=== PATIENT | male | born 1940 | race Caucasian/White ===

== ENCOUNTER 2016-12-03 16:31 | Emergency (ER) | payer OTHER ==
[2016-12-03 16:46] VITALS: RESP 16; TEMP 97.5; O2SAT 95
--- NOTE | 2016-12-03 17:09 | EDPHY ---
H & P Stated Complaint: hx BPH/having issues with urinary retention Time Seen by Provider: 12/03/16 16:55 HPI/ROS: Chief complaint: Urinary retention History of present illness: This is a 76-year-old male who presents to the emergency department evaluation he of urinary retention areas patient reports the onset of symptoms over the last day. He states he has been on blood be able to urinate for the last few hours. He did just started azithromycin for an upper respiratory tract infection and he states he has a history of problems with his prostate, however she only takes supplements. States he has had problems urinating before but never had a complete inability urinate. He denies other associated signs or symptoms: No fevers, no abdominal pain, no nausea, vomiting or diarrhea. Review of systems: A 10 point review of systems was obtained and other than described above was negative - Personal History Current Tetanus/Diphtheria Vaccine: No - Medical/Surgical History Hx Asthma: No Hx Chronic Respiratory Disease: No Hx Diabetes: No Hx Cardiac Disease: No Hx Renal Disease: No Hx Cirrhosis: No Hx Alcoholism: No Hx HIV/AIDS: No Hx Splenectomy or Spleen Trauma: No Other PMH: cardiac bypass surgery - Social History Smoking Status: Never smoked - Physical Exam Exam: General Appearance: Alert, nontoxic. Eyes: Pupils equal and round no injection. Respiratory: Chest is non tender, lungs are clear to auscultation. Cardiac: regular rate and rhythm Gastrointestinal: Bowel sounds normal. Abdomen is soft. There is distention in the suprapubic region. No tenderness to palpation. Musculoskeletal: Neck is supple and non tender. Extremities have full range of motion and are non tender. Skin: No rashes or lesions. Neurological: Alert and oriented x4. Strength and sensation intact and symmetrical. Constitutional: Initial Vital Signs Temperature (C) 36.4 C 12/03/16 16:43 Heart Rate 95 12/03/16 16:43 Respiratory Rate 16 12/03/16 16:43 Blood Pressure 144/92 H 12/03/16 16:43 O2 Sat (%) 95 12/03/16 16:43 O2 Delivery Mode Room Air Allergies/Adverse Reactions: No Known Allergies Allergy (Verified 12/03/16 16:41) Home Medications: Medication Instructions Recorded Atorvastatin Calcium [Lipitor 20 20 mg PO DAILY 07/28/11 mg] Lisinopril [Prinivil] 20 mg PO DAILY 08/21/11 AZITHROMYCIN 12/03/16 Medical Decision Making ED Course/Re-evaluation: Patient seen under the supervision of my primary supervising physician Dr. Tamiko Alva. Patient presents to the emergency department for acute urinary retention. On presentation he is nontoxic. Afebrile and vital signs are stable. Bladder scanner shows over 600 cc of urine in the bladder. Catheter is placed. Patient has good relief of discomfort. Urinalysis is obtained, blood is noted, likely secondary to catheter placement. No evidence of infection. Patient does report a history of problems urinating although he has not specifically seen a urologist before. Long catheter will be left in place with a leg bag. He is referred to Urology for further evaluation and care. Return precautions are given. Patient voiced understanding and agreement with plan. Differential Diagnosis: Included but not limited to acute urinary retention secondary to BPH, infection , medication - Data Points Laboratory Results: 12/03/16 17:25 Urine Color RED Urine Appearance HAZY Urine pH 7.0 (5.0-7.5) Ur Specific [place] 1.015 (1.002-1.030) Urine Protein 1+ H (NEGATIVE) Urine Ketones NEGATIVE (NEGATIVE) Urine Blood 3+ H (NEGATIVE) Urine Nitrate NEGATIVE (NEGATIVE) Urine Bilirubin NEGATIVE (NEGATIVE) Urine Urobilinogen NEGATIVE EU EU (0.2-1.0) Ur Leukocyte Esterase NEGATIVE (NEGATIVE) Urine RBC 50-182 /hpf H /hpf (0-3) Urine WBC NONE SEEN /hpf /hpf (0-3) Ur Epithelial Cells NONE SEEN /lpf /lpf (NONE-1+) Urine Mucus TRACE /lpf /lpf (NONE-1+) Ur Culture Indicated? NOT INDICATED (NI) Urine Glucose NEGATIVE (NEGATIVE) Departure - Departure Disposition: Home, Routine, Self-Care Clinical Impression: Urinary retention Condition: Good Instructions: Urinary Retention in Men (ED), Long Catheter Placement and Care (ED) Additional Instructions: Follow-up with Urology this week for recheck Urology can remove the catheter later this week or you can return to the emergency department for catheter removal in the next 2-3 days If symptoms worsen or new symptoms develop return to the emergency department for recheck Referrals: Shar Delgado MD [Medical Doctor] - As per Instructions
[2016-12-03 17:54] LABS: COLOR RED; LEUKOCYTE ESTERASE,URINE NEGATIVE (NEGATIVE); NITRITE,URINE NEGATIVE (NEGATIVE)
[2016-12-03 18:02] LABS: MUCUS TRACE /lpf (NONE-1+); RBC,URINE 50-182 /hpf (0-3)
[2016-12-03 18:03] LABS: WBC,URINE NONE SEEN /hpf (0-3)
[2016-12-03 18:38] VITALS: BP 138/88; PULSE 84
== END 2016-12-03 18:36 | disposition home or self-care (01) ==
PROC: 0T9B70Z Drainage of Bladder with Drainage Device, Via Natural or Artificial Opening (ICD-10-PCS; principal; 2016-12-03)
DX: R33.9 Retention of urine, unspecified (principal)

== ENCOUNTER 2017-06-23 14:00 | Inpatient (IN) | payer OTHER ==
--- NOTE | 2017-06-23 13:52 | EDPHY ---
H & P HPI/ROS: CHIEF COMPLAINT: Vomiting, fever HISTORY OF PRESENT ILLNESS: The patient is a 76 y/o male arriving via EMS for vomiting, fever, and general malaise since 1200 today, 2 hours ago. His states he had a temperature of nearly 41 C after he became ill. He has vomited three times since 1300, 1 hour ago. EMS reports a blood pressure of 104/66 and a heart rate of 130 although it dropped to 104 by the time the patient arrived in the ED. He denies dysuria. He took an Advil earlier in the day because of toothache (lower right). Toothache is resolved. He had a root canal done a few weeks ago He is currently feeling groggy and cold. Denies cough, shortness of breath, chest pain , headache, sore throat, abdominal pain, diarrhea, and constipation. He received IV Zofran and IV fluids and route. REVIEW OF SYSTEMS: A ten point review of systems was performed and is negative with the exception of the items mentioned in the HPI. Past medical history: Cholelithiasis, 2011 Coronary artery disease status post CABG and stenting Past surgical history: CABG 2005 Stents 2011 Appendix removed Social history: at bedside, he does not use tobacco or alcohol. General Appearance: Elderly, ill appearing, alert. Vital signs reviewed. Vital signs at triage were a blood pressure of 103/64, heart rate 98, respiratory rate 42, oxygen saturation 97%, and temperature 37.4degrees. Eyes: Pupils equal and round, no conjunctival injection, no discharge. Anicteric. ENT, Mouth: Mucous membranes are moist, no oropharyngeal erythema or edema. Neck: No lymphadenopathy, supple. Respiratory: Lungs are clear to auscultation; no wheezes, rales, or rhonchi. He is tachypneic with respiratory rate in the high 20s at the time of my evaluation. Cardiovascular: Tachycardic; no murmur, rub, or gallop. Gastrointestinal: Abdomen is soft and nontender, no masses or organomegaly, bowel sounds normal. Skin: Warm and dry, no rashes on exposed skin, normal color. Back: Nontender to palpation over the thoracolumbar spine. No CVAT. Extremities: No lower extremity edema, no calf tenderness or swelling. Neurological: Alert and oriented. Moving all four extremities easily and equally. SHANNAN. EOMI. Facial expressions symmetric. Tongue midline. Psychiatric: Normal affect. Source: Patient, Family, EMS, Old records Constitutional: Initial Vital Signs Temperature (C) 37.4 C 06/23/17 14:25 Heart Rate 98 06/23/17 14:25 Respiratory Rate 42 H 06/23/17 14:25 Blood Pressure 103/64 06/23/17 14:25 O2 Sat (%) 97 06/23/17 14:25 O2 Delivery Mode Nasal Cannula O2 (L/minute) 2 Allergies/Adverse Reactions: No Known Allergies Allergy (Verified 06/23/17 14:23) Home Medications: Medication Instructions Recorded Aspirin EC [Aspirin EC 81 mg (*)] 81 mg PO HS 06/23/17 Atorvastatin Calcium [Lipitor 20 20 mg PO DAILY@1300 06/23/17 mg (*)] Finasteride [Proscar 5 MG (*)] 5 mg PO DAILY 06/23/17 Herbals/Supplements -Info Only 1 ea PO DAILY 06/23/17 Lisinopril [Zestril 20 mg (*)] 20 mg PO HS 06/23/17 Tamsulosin HCl [Flomax 0.4 MG (*)] 0.4 mg PO HS 06/23/17 Medical Decision Making - Diagnostics Imaging Results: Imaging Impressions Neck CT 06/23/17 14:48 Impression: 1. Complex cystic and solid mass in the right thyroid gland, measuring 6.1 cm. 2. Evidence of atherosclerotic disease in the thoracic aorta, with mild dilatation of the ascending thoracic aorta imaged up to 3.9 cm. Consider follow up. 3. No evidence for significant stenosis or dissection in either carotid artery. 4. Multilevel degenerative disk and degenerative joint disease cervical spine. Results called and discussed with Danita Cardona M.D., on June 23, 2017 at 1535. Chest X-Ray 06/23/17 15:11 Impression: 1. Question mild bronchitis. No other findings for acute cardiopulmonary abnormality. 2. Soft tissue density in the right paratracheal location deviating the trachea to the left. Please see subsequent following CT neck report. Abdomen Ultrasound 06/23/17 16:04 Impression: 1. Cholelithiasis with some pericholecystic fluid. Consider underlying chronic cholecystitis. 2. The pancreatic tail is obscured by overlying bowel gas. 3. Right renal cysts are evident. 4. Abdominal aortic aneurysm measuring 3.1 cm only minimally increased since the prior studies. Imaging: Discussed imaging studies w/ score caller Radiologist, I viewed and interpreted images myself ED Course/Re-evaluation: The patient is a 76 y/o male arriving via EMS who presents with a fever and vomiting since 1200, 2 hours ago. He is currently tachycardic and typhinic. He does meet initial sepsis criteria. 1411: BP 103/64 RR 25 HR 77 1440: Reassessed patient. Right-sided neck swelling that was not seen when he arrived. His states that she has never noticed a mass in his neck. Mild RUQ tenderness with no guarding. Systolic BP: 103, HR: 70's, RR: low 20's, mentating normally. There was a delay in obtaining blood work. Out of concern that this was an expanding neck mass he was sent emergently to CT scanning, further delaying his blood work. His initial lactate was noted to be 3.4. 2 L of IV fluid were ordered and hanging. However, when the patient went to CT scan fluids were discontinued and there was a lapse during which fluids were not restarted. Sepsis was recognized at the time that the patient arrived in the emergency department. With his elevated lactate severe sepsis was identified. Time of this identification was not marked in the order set. By my recollection, severe sepsis was identified at approximately 12:45 p.m.. 1528: Reassessed patient. The neck mass remains. Denies difficulty breathing, swallowing. Breath sounds clear to auscultation. Respiratory pathogen panel negative/normal. HR: 86, RR: in the high teens and low 20's. 1530: Spoke with Dr. García, radiologist, he reports that the neck mass is a complex thyroid mass measuring 6.1 cm. 1535: Reassessed patient and discussed CT findings with patient and his . Source of infection has not been identified. Awaiting urine. Chest x-ray does not show an infiltrate. I am somewhat concerned about right upper quadrant tenderness that is noticed on exam. He has no guarding. Review of his previous records I note that he has cholelithiasis. A right upper quadrant ultrasound will be ordered. He has not been febrile in the emergency department. 1730: Urinalysis is positive for leukocyte esterase and 25-50 white blood cells, no bacteria noted. Urine culture sent. No other source of infection identified. He is given ceftriaxone 1 g IV. Spoke with hospitalist service, Dr. Anand accepts admission of this patient. 1809: Reassessed patient--apparently a bed has been assigned but his most recent blood pressure is 93/64. A third L of IV fluids ordered. He has had a repeat lactate. His lactate has decreased from 3.4 to 1.5. However, given his hypotension I feel that he should not go to a med surge floor, but would benefit from step-down or ICU care. Differential Diagnosis: Fever in adults including but not limited to sepsis, pneumonia, urinary tract infection, viral syndrome, and influenza. - Data Points Laboratory Results: Laboratory Results 06/23/17 14:15 06/23/17 14:15 06/23/17 06/23/17 06/23/17 16:41 16:15 14:15 WBC RBC Hgb Hct MCV MCH MCHC RDW Plt Count MPV Neut % (Auto) Lymph % (Auto) [place] % (Auto) Eos % (Auto) Baso % (Auto) Nucleat RBC Rel Count Absolute Neuts (auto) Absolute Lymphs (auto) Absolute Monos (auto) Absolute Eos (auto) Absolute Basos (auto) Absolute Nucleated RBC Immature Gran % Immature Gran # PT INR APTT VBG Lactic Acid 1.5 mmol/L D mmol/L (0.7-2.1) Sodium Potassium Chloride Carbon Dioxide Anion Gap BUN Creatinine Estimated GFR Glucose Calcium Total Bilirubin 1.5 mg/dL H mg/dL (0.1-1.4) Conjugated Bilirubin 0.5 mg/dL mg/dL (0.0-0.5) Unconjugated Bilirubin 1.0 mg/dL mg/dL (0.0-1.1) AST 31 IU/L IU/L (17-59) ALT 35 IU/L IU/L (21-72) Alkaline Phosphatase 100 IU/L IU/L (38-126) Total Protein 7.0 g/dL g/dL (6.3-8.2) Albumin 4.2 g/dL g/dL (3.5-5.0) TSH 2.310 uIU/mL uIU/mL (0.465-4.680) Urine Color YELLOW Urine Appearance HAZY Urine pH 6.0 (5.0-7.5) Ur Specific [place] > 1.035 H (1.002-1.030) Urine Protein NEGATIVE (NEGATIVE) Urine Ketones NEGATIVE (NEGATIVE) Urine Blood NEGATIVE (NEGATIVE) Urine Nitrate NEGATIVE (NEGATIVE) Urine Bilirubin NEGATIVE (NEGATIVE) Urine Urobilinogen NEGATIVE EU EU (0.2-1.0) Ur Leukocyte Esterase 2+ H (NEGATIVE) Urine RBC NONE SEEN /hpf /hpf (0-3) Urine WBC 25-50 /hpf H /hpf (0-3) Ur Epithelial Cells NONE SEEN /lpf /lpf (NONE-1+) Urine Mucus TRACE /lpf /lpf (NONE-1+) Urine Glucose NEGATIVE (NEGATIVE) 06/23/17 06/23/17 06/23/17 14:15 14:15 14:15 WBC 11.03 10^3/uL H 10^3/uL (3.80-9.50) RBC 4.86 10^6/uL 10^6/uL (4.40-6.38) Hgb 15.4 g/dL g/dL (13.7-17.5) Hct 44.4 % % (40.0-51.0) MCV 91.4 fL fL (81.5-99.8) MCH 31.7 pg pg (27.9-34.1) MCHC 34.7 g/dL g/dL (32.4-36.7) RDW 12.8 % % (11.5-15.2) Plt Count 234 10^3/uL 10^3/uL (150-400) MPV 10.7 fL fL (8.7-11.7) Neut % (Auto) 88.8 % H % (39.3-74.2) Lymph % (Auto) 8.6 % L % (15.0-45.0) [place] % (Auto) 1.7 % L % (4.5-13.0) Eos % (Auto) 0.3 % L % (0.6-7.6) Baso % (Auto) 0.3 % % (0.3-1.7) Nucleat RBC Rel Count 0.0 % % (0.0-0.2) Absolute Neuts (auto) 9.80 10^3/uL H 10^3/uL (1.70-6.50) Absolute Lymphs (auto) 0.95 10^3/uL L 10^3/uL (1.00-3.00) Absolute Monos (auto) 0.19 10^3/uL L 10^3/uL (0.30-0.80) Absolute Eos (auto) 0.03 10^3/uL 10^3/uL (0.03-0.40) Absolute Basos (auto) 0.03 10^3/uL 10^3/uL (0.02-0.10) Absolute Nucleated RBC 0.00 10^3/uL 10^3/uL (0-0.01) Immature Gran % 0.3 % % (0.0-1.1) Immature Gran # 0.03 10^3/uL 10^3/uL (0.00-0.10) PT 12.9 SEC SEC (12.0-15.0) INR 0.98 (0.83-1.16) APTT 23.3 SEC SEC (23.0-38.0) VBG Lactic Acid Sodium 139 mEq/L mEq/L (134-144) Potassium 3.7 mEq/L mEq/L (3.5-5.2) Chloride 104 mEq/L mEq/L (97-110) Carbon Dioxide 20 mEq/l L mEq/l (22-31) Anion Gap 15 mEq/L mEq/L (8-16) BUN 31 mg/dL H mg/dL (7-23) Creatinine 1.0 mg/dL mg/dL (0.7-1.3) Estimated GFR > 60 Glucose 93 mg/dL mg/dL (70-100) Calcium 9.9 mg/dL mg/dL (8.5-10.4) Total Bilirubin 1.6 mg/dL H mg/dL (0.1-1.4) Conjugated Bilirubin Unconjugated Bilirubin AST ALT Alkaline Phosphatase Total Protein Albumin TSH Urine Color Urine Appearance Urine pH Ur Specific [place] Urine Protein Urine Ketones Urine Blood Urine Nitrate Urine Bilirubin Urine Urobilinogen Ur Leukocyte Esterase Urine RBC Urine WBC Ur Epithelial Cells Urine Mucus Urine Glucose 06/23/17 11:41 WBC RBC Hgb Hct MCV MCH MCHC RDW Plt Count MPV Neut % (Auto) Lymph % (Auto) [place] % (Auto) Eos % (Auto) Baso % (Auto) Nucleat RBC Rel Count Absolute Neuts (auto) Absolute Lymphs (auto) Absolute Monos (auto) Absolute Eos (auto) Absolute Basos (auto) Absolute Nucleated RBC Immature Gran % Immature Gran # PT INR APTT VBG Lactic Acid 3.4 mmol/L H mmol/L (0.7-2.1) Sodium Potassium Chloride Carbon Dioxide Anion Gap BUN Creatinine Estimated GFR Glucose Calcium Total Bilirubin Conjugated Bilirubin Unconjugated Bilirubin AST ALT Alkaline Phosphatase Total Protein Albumin TSH Urine Color Urine Appearance Urine pH Ur Specific [place] Urine Protein Urine Ketones Urine Blood Urine Nitrate Urine Bilirubin Urine Urobilinogen Ur Leukocyte Esterase Urine RBC Urine WBC Ur Epithelial Cells Urine Mucus Urine Glucose Microbiology Results: MICROBIOLOGY 06/23/17 14:50 Nasal, Sinus - Anaerobic Tube/Swab Respiratory Panel (PCR) - Final No Organism Detected Medications Given: Aspirin Buffered (Aspirin Ec) 81 mg PO HS SHAWN Stop: 12/20/17 20:59 Last Admin: 06/23/17 21:19 Dose: Not Given Sodium Chloride (Ns) 1,000 mls @ 125 mls/hr IV CONT SHAWN Stop: 12/20/17 19:59 Last Admin: 06/23/17 21:38 Dose: 1,000 mls Sodium Chloride (Ns) 2,000 mls @ 333.3333 mls/hr 30 ml/kg infuse over 6 hr ( 2000 ml) IV ONCE ONE Stop: 06/24/17 03:21 Last Admin: 06/23/17 21:38 Dose: 2,000 mls Discontinued Medications Acetaminophen (Tylenol Rectal) 1,000 mg NC EDNOW ONE Stop: 06/23/17 14:33 Last Admin: 06/23/17 15:19 Dose: Not Given Sodium Chloride (Ns) 1,000 mls @ 0 mls/hr IV ONCE ONE PRN Reason: Wide Open Stop: 06/23/17 15:36 Last Admin: 06/23/17 14:30 Dose: 1,000 mls Sodium Chloride (Ns) 1,000 mls @ 0 mls/hr IV ONCE ONE PRN Reason: Wide Open Stop: 06/23/17 15:36 Last Admin: 06/23/17 14:30 Dose: 1,000 mls Ceftriaxone Sodium/Dextrose (Rocephin 1 Gm (Premix)) 50 mls @ 100 mls/hr IV EDNOW ONE PRN Reason: Protocol Stop: 06/23/17 18:00 Last Admin: 06/23/17 17:59 Dose: 50 mls Sodium Chloride (Ns) 1,000 mls @ 0 mls/hr IV EDNOW ONE; Wide Open PRN Reason: Protocol Stop: 06/23/17 18:19 Last Admin: 06/23/17 18:23 Dose: 1,000 mls Ondansetron HCl (Zofran) 4 mg IVP EDNOW ONE Stop: 06/23/17 14:09 Last Admin: 06/23/17 14:11 Dose: 4 mg Departure - Departure Disposition: [facility] Inpatient Acute Clinical Impression: Sepsis Qualifiers: Sepsis type: sepsis due to unspecified organism Qualified Code(s): A41.9 - Sepsis, unspecified organism Urinary tract infection Qualifiers: Urinary tract infection type: acute cystitis Hematuria presence: without hematuria Qualified Code(s): N30.00 - Acute cystitis without hematuria Condition: Fair Report Scribed for: Danita Cardona Report Scribed by: Yun Reyes Date of Report: 06/23/17 Time of Report: 14:48 Physician Review and Approval Statement: 06/23/17 13:52 Portions of this note were transcribed by the special forces medical sergeant. I, Dr. Danita Cardona, personally performed the history, physical exam, and medical decision- making; and confirmed the accuracy of the information in the transcribed note.
[2017-06-23] MEDS ORDERED: ONDANSETRON 4 MG/2 ML VIAL IVP ONE (14:08)
[2017-06-23] MEDS ORDERED: ACETAMINOPHEN 650 MG SUPP PR ONE (14:32)
[2017-06-23] MEDS ORDERED: IOPAMIDOL (ISOVUE-300) 100 ML BTL ONE (14:51)
[2017-06-23 15:26] LABS: % IMMATURE GRANULYOCYTES 0.3 % (0.0-1.1); ABSOLUTE IMMATURE GRANULOCYTES 0.03 10^3/uL (0.00-0.10); ADD DIFF? NO; ADD MORPH? NO; ADD SCAN? NO; ATYPICAL LYMPHOCYTE FLAG 0 (0-99); FRAGMENT RBC FLAG 0 (0-99); HEMATOCRIT 44.4 % (40.0-51.0); HEMOGLOBIN 15.4 g/dL (13.7-17.5); LEFT SHIFT FLG 20 (0-99); LIPEMIA HEMOLYSIS FLAG 90 (0-99); MEAN CELL HEMOGLOBIN 31.7 pg (27.9-34.1); MEAN CELL HEMOGLOBIN CONCENTR. 34.7 g/dL (32.4-36.7); MEAN CELL VOLUME 91.4 fL (81.5-99.8); MEAN PLATELET VOLUME 10.7 fL (8.7-11.7); PLATELET CLUMPS FLAG 0 (0-99); PLATELET COUNT 234 10^3/uL (150-400); RED BLOOD CELL COUNT 4.86 10^6/uL (4.40-6.38); RED CELL DISTRIBUTION WIDTH 12.8 % (11.5-15.2)
[2017-06-23 15:32] LABS: ANION GAP 15 mEq/L (8-16); BILIRUBIN,TOTAL 1.6 mg/dL (0.1-1.4); CALCIUM 9.9 mg/dL (8.5-10.4); CARBON DIOXIDE 20 mEq/l (22-31); CHLORIDE 104 mEq/L (97-110); GLOMERULAR FILTRATION RATE > 60; GLUCOSE 93 mg/dL (70-100); POTASSIUM 3.7 mEq/L (3.5-5.2); SODIUM 139 mEq/L (134-144)
[2017-06-23] MEDS ORDERED: NS 1,000 ML IV ONE ×3 (15:35→18:18)
[2017-06-23 15:47] LABS: INR 0.98 (0.83-1.16); PROTIME(PATIENT) 12.9 SEC (12.0-15.0)
[2017-06-23 15:48] LABS: APTT 23.3 SEC (23.0-38.0)
[2017-06-23 16:39] LABS: COLOR YELLOW; LEUKOCYTE ESTERASE,URINE 2+ (NEGATIVE); NITRITE,URINE NEGATIVE (NEGATIVE)
[2017-06-23 16:48] LABS: MUCUS TRACE /lpf (NONE-1+); WBC,URINE 25-50 /hpf (0-3)
[2017-06-23 16:52] LABS: RBC,URINE NONE SEEN /hpf (0-3)
[2017-06-23 18:20] LABS: ALBUMIN 4.2 g/dL (3.5-5.0); BILIRUBIN,TOTAL 1.5 mg/dL (0.1-1.4); BILIRUBIN-CONJUGATED 0.5 mg/dL (0.0-0.5)
[2017-06-23] MEDS ORDERED: ONDANSETRON DISINTEGRATING 4 MG TAB PO PRN (18:31)
[2017-06-23] MEDS ORDERED: ACETAMINOPHEN 325 MG TAB PO PRN (18:31)
[2017-06-23] MEDS ORDERED: ONDANSETRON 4 MG/2 ML VIAL IVP PRN (18:31)
[2017-06-23] MEDS ORDERED: NS 1,000 ML IV SCH (20:00)
[2017-06-23] MEDS ORDERED: ASPIRIN EC 81 MG TAB PO SCH (21:00)
[2017-06-23] MEDS ORDERED: TAMSULOSIN HCL 0.4 MG CAP PO SCH (21:00)
[2017-06-23] MEDS ORDERED: NS 2,000 ML IV ONE (21:22)
--- NOTE | 2017-06-23 21:25 | GHP ---
[f rep st] HISTORY AND PHYSICAL DATE OF ADMISSION: 06/23/2017 CHIEF COMPLAINT: Fever, severe sepsis. HISTORY OF PRESENT ILLNESS: A 76-year-old male with history of coronary artery disease, history of gallstones, and prior UTI presenting with fever and vomiting. He started feeling poorly about noon today and vomited 3 times. His said he had a temperature of nearly 41. His heart rate was 130s per EMS. Reports chills. No headache. No change in urination. He does have chronic urinary issues, secondary to BPH. No chest pain, shortness of breath. No diarrhea or headache, cough or abdominal pain. Denies abdominal pain. No cough. In ER, neck mass was noted by Dr. Cardona. This is new per patient and . No redness or pain. Patient reports having UTI 2 months ago, on antibiotics. REVIEW OF SYSTEMS: I completed a 10-point review of systems. Negative, except as noted in HPI. PAST MEDICAL HISTORY: Coronary artery disease, gallstones, UTI 2 months ago. PAST SURGICAL HISTORY: CABG, cardiac stents, appendectomy FAMILY HISTORY: No coronary artery disease or stroke. SOCIAL HISTORY: He lives in [place]. He has been greater than 50 years. No alcohol, tobacco, or illicits. HOME MEDICATIONS: Herbal supplement. Flomax 0.4. Finasteride 5 mg. Aspirin 81 mg. Zestril 20 mg. Atorvastatin 20. ALLERGIES: No known drug allergies. PHYSICAL EXAMINATION: VITAL SIGNS: 36.7. Blood pressure 93 over 64 to 103 over 66, heart rates was 130 in the EMS, 60s and 90s here. Respirations 16. 94 % on room air. GENERAL: Male lying in bed. Appears mildly ill. HEENT: PERRLA. Dry mucous membranes. NECK: 5 cm soft mass right neck. No TTP or erythems CV: Regular rate and rhythm. No murmurs, gallops, rubs. LUNGS: Clear to auscultation bilaterally. ABDOMEN: Soft, nontender, nondistended. No suprapubic or CVA tenderness. MUSCULOSKELETAL: 5/5 upper and lower extremity strength. NEURO: 2 through 12 intact. PSYCH: Alert and oriented x3. LABS: WBC 11, hemoglobin 15, hematocrit 44, platelets 234. Coags within normal. Lactate 3.4; 1.5 after fluids. Sodium 139, potassium 3.7, chloride 104 , carbon dioxide 20, BUN 31, creatinine 1, total bilirubin 1.6, AST 31, ALT 35, alk phos 100, total protein 7, albumin 4.2, TSH 2.3. CT Neck: Complex, cystic and solid mass in the right thyroid gland, measuring 6.1 cm. Evidence of atherosclerotic disease in the thoracic aorta. Mild dilatation of the ascending thoracic aorta, up to 3.9 cm. Chest x-ray personally reviewed by me. Mild bronchitis. No acute opacity. Abdominal ultrasound pending. ASSESSMENT AND PLAN: 1. Severe sepsis: Patient was febrile at home with hypotension and an elevated lactate here. Responded to 2L in ER. Positive UA. US shows gallstones. I discussed case with Dr. Rubio who states to treat for urinary source and that stones likely chronic given no pain and normal BR. Likely urinary source with positive UA. U/S negative for renal abscess. Blood and urine cultures are pending. Respiratory panel is negative. His lactate resolved with intravenous fluids. Will continue intravenous ceftriaxone. Awaiting cultures. Aggressively hydrate. Reviewed neck CT with Dr. Somers and it does not seem to abscess, rather thyroid mass. 2. Lactic acidosis secondary to acute infection. This resolved with intravenous fluids. 3. Right thyroid mass: this appears to be chronic. Dr. Somers reviewed with me. Recs U/S FNA biopsy and culture can be sent. It does not seem to be a source of infection. 4. Coronary artery disease. Continue aspirin and statin. He is not on a beta janet. Last seen by Dr. Kraus 09/2016; Lipitor increased and pt declined exercise stress testing. 5. Hypertension. hold lisinopril, given acute infection. 6. Hypotension: suspect infection, but with h/o CAD, check trop, EKG 7. Renal cysts: noted on U/S 8. Cholelithiasis: denies pain. Min elevation of bilirubin. Negative Thomas's sign. 9. Diet regular. 10. Deep venous thrombosis prophylaxis: Lovenox. DISPOSITION: Patient warrants inpatient admission, given acute severe sepsis, warranting IV fluids and antibiotics. Critical care time spent: 60 min examining patient, reviewing labs, imaging and discussing case with Dr. Rubio and Dr. Somers. /[id number]/MODL MTDD
--- NOTE | 2017-06-23 21:56 | CPEKG ---
Heart Rate: 60 RR Interval: 1000 P-R Interval: 212 QRSD Interval: 90 QT Interval: 448 QTC Interval: 448 P Il[place]: 52 QRS [place]: 33 T Wave [place]: 11 EKG Severity - NORMAL ECG - EKG Impression: SINUS RHYTHM EKG Impression: COMPARED WITH 08/22/2011, NO SIGNIFICANT CHANGE Electronically Signed By: Tanya Bruce 24-Jun-2017 10:30:43
[2017-06-23] MEDS ORDERED: NOREPINEPHRINE/NS 500 ML IV SCH (23:00)
--- NOTE | 2017-06-23 23:00 | HOSPPROG ---
Hospitalist Progress Note Assessment/Plan: Addendum to H&P: Patient SBP now 79 after 4L NS, afebrile. Patient denies symptoms, mentating well. #Septic shock: -suspect urinary, but will cover for cholecystitis. Give additional 1gm CTX ( 2gm q24hr) and Flagyl. Appreciate Dr. Rubio's assistance with central line -cont IVFs, repeat lactate #Hypotension: EKG and trop pending. TTE in 2010 showed EF 62%, inferior/septal wall hypokinesis Objective: Vital Signs Temp Pulse Resp BP Pulse Ox 36.7 C 70 14 93/62 L 99 06/23/17 20:50 06/23/17 20:50 06/23/17 20:50 06/23/17 20:50 06/23/17 20:50 06/22/17 06/23/17 06/24/17 05:59 05:59 05:59 Intake Total 3000 Balance 3000 PT 12.9 SEC (12.0-15.0) 06/23/17 14:15 INR 0.98 (0.83-1.16) 06/23/17 14:15 ICD10 Worksheet Patient Problems: Problems Problem Status Onset Sepsis Acute Urinary tract infection Acute
--- NOTE | 2017-06-24 03:16 | GOP ---
[f rep st] OPERATIVE REPORT DATE OF OPERATION: 06/23/2017 SURGEON: Jonah Rubio MD PREOPERATIVE DIAGNOSIS: Sepsis, hypotension, inadequate venous access for inotropic medications. POSTOPERATIVE DIAGNOSIS: Sepsis, hypotension, inadequate venous access for inotropic medications. PROCEDURE PERFORMED: Placement of a left subclavian central venous line. A consent is obtained. The patient is appropriately identified. A time-out was carried out. He is placed in Trendelenburg to maximize venous filling. This filling is still somewhat marginal. A bolus of IV fluid was given. The left chest was carefully prepped and draped. A 25-gauge needle was used to administer 1% Xylocaine for local anesthetic. The needle and syringe was then used to access the subclavian vessel. A guidewire was passed without difficulty. The needle and syringe were removed over the guidewire. The skin was incised. Dilator was carefully passed over the guidewire. The dilator was then removed. The triple-lumen catheter (of which 2 lumens have been previously flushed and capped) is carefully advanced over the guidewire. It was advanced to approximately 18 cm and secured with a suture. The guidewire was removed. Last hub was placed. There was good venous return. The last port was flushed. The line was secured to the chest wall with a suture of #3-0 silk. A Biopatch was placed and a Tegaderm dressing was used. A chest x-ray is obtained. It shows the line to be in good position without evidence of pneumothorax. The patient tolerated the procedure well. /[id number]/MODL MTDD
[2017-06-24 05:41] LABS: MIXED VENOUS O2 SATURATION 91 % (65-75)
[2017-06-24 05:44] LABS: MEAN CELL HEMOGLOBIN 31.8 pg (27.9-34.1); MEAN CELL HEMOGLOBIN CONCENTR. 33.2 g/dL (32.4-36.7); RED CELL DISTRIBUTION WIDTH 13.3 % (11.5-15.2)
[2017-06-24 05:48] LABS: HEMATOCRIT 36.7 % (40.0-51.0); HEMOGLOBIN 12.2 g/dL (13.7-17.5); MEAN CELL VOLUME 95.6 fL (81.5-99.8); RED BLOOD CELL COUNT 3.84 10^6/uL (4.40-6.38)
[2017-06-24 05:58] LABS: ALANINE AMINOTRANSFERASE 40 IU/L (21-72); ALBUMIN 2.5 g/dL (3.5-5.0); ALKALINE PHOSPHATASE 57 IU/L (38-126); ANION GAP 7 mEq/L (8-16); ASPARTATE AMINOTRANSFERASE 26 IU/L (17-59); BILIRUBIN,TOTAL 1.4 mg/dL (0.1-1.4); CALCIUM 7.9 mg/dL (8.5-10.4); CARBON DIOXIDE 20 mEq/l (22-31); CHLORIDE 112 mEq/L (97-110); CREATININE 0.9 mg/dL (0.7-1.3); GLOMERULAR FILTRATION RATE > 60; GLUCOSE 81 mg/dL (70-100); POTASSIUM 3.6 mEq/L (3.5-5.2); SODIUM 139 mEq/L (134-144)
[2017-06-24] MEDS ORDERED: FINASTERIDE 5 MG TAB PO SCH (09:00)
[2017-06-24] MEDS ORDERED: Herbals/Supplements -Info Only PO SCH (09:00)
[2017-06-24] MEDS: cefTRIAXone 2 GM in D5W 50 ML IV SCH (09:41)
[2017-06-24] MEDS: ENOXAPARIN 40 MG/0.4 ML SYR SC SCH (09:43)
[2017-06-24] MEDS ORDERED: D5W NS 1,000 ML IV SCH (11:30)
[2017-06-24] MEDS ORDERED: CO Q10 PO SCH (12:00)
[2017-06-24] MEDS ORDERED: ATORVASTATIN CALCIUM 20 MG TAB PO SCH (13:00)
[2017-06-24] MEDS: ATORVASTATIN CALCIUM 20 MG TAB PO SCH (13:20)
[2017-06-24] MEDS: CO Q10 PO SCH (13:20)
[2017-06-24] MEDS ORDERED: BUPIVACAINE 0.5% 30 ML SDV ONE (15:47)
[2017-06-24] MEDS ORDERED: fentaNYL 100 MCG/2 ML INJ ONE ×3 (16:14→17:25)
[2017-06-24] MEDS ORDERED: PROPOFOL 200 MG/20 ML VIAL ONE (16:14)
[2017-06-24] MEDS ORDERED: LIDOCAINE 2% 5 ML SDV ONE (16:17)
--- NOTE | 2017-06-24 16:21 | PDANEPAE ---
ANE History of Present Illness Patient presents for Lap Ibeth SARAH Past Medical History - Cardiovascular History Hx Coronary Artery / Peripheral Vascular Disease: Yes - Pulmonary History Hx Oxygen in Use at Home: No Hx Sleep Apnea: No - Endocrine History Hx Diabetes: No ANE Review of Systems - Exercise capacity Exercise capacity: limited by disability ANE Patient History - Allergies Allergies/Adverse Reactions: No Known Allergies Allergy (Verified 06/23/17 14:23) - Home Medications Home medications: home medication list seen and reviewed Home Medications: Aspirin EC [Aspirin EC 81 mg (*)] 81 mg PO HS 06/23/17 [Last Taken 06/22/17] Atorvastatin Calcium [Lipitor 20 mg (*)] 20 mg PO DAILY@1300 06/23/17 [Last Taken 06/23/17] Finasteride [Proscar 5 MG (*)] 5 mg PO DAILY 06/23/17 [Last Taken 06/23/17] Herbals/Supplements -Info Only 1 ea PO DAILY 06/23/17 [Last Taken Unknown] Tamsulosin HCl [Flomax 0.4 MG (*)] 0.4 mg PO HS 06/23/17 [Last Taken 06/22/17] - NPO status NPO Status: no food or drink >8 hours - Anes Hx Anes Hx: no prior problems - Smoking Hx Smoking Status: Current every day smoker ANE Labs/Vital Signs - Labs Result Diagrams: 06/24/17 05:35 06/24/17 05:35 - Vital Signs Blood Pressure: 104/63 Heart Rate: 61 Respiratory Rate: 16 O2 Sat (%): 92 Height: 173 cm Weight: 65.6 kg ANE Physical Exam - Airway Neck exam: FROM Mallampati Score: Class 2 - Pulmonary Pulmonary: no respiratory distress - Cardiovascular Cardiovascular: regular rate and rhythym - ASA Status ASA Status: III ANE Anesthesia Plan Anesthesia Plan: general endotracheal anesthesia (rba discussed)
[2017-06-24] MEDS ORDERED: ONDANSETRON 4 MG/2 ML VIAL ONE (16:57)
[2017-06-24] MEDS ORDERED: ROCURONIUM 50 MG/5 ML VIAL ONE ×2 (16:57→17:11)
[2017-06-24] MEDS ORDERED: DEXAMETHASONE 4 MG/ML VIAL ONE (16:57)
[2017-06-24] MEDS ORDERED: fentaNYL 100 MCG/2 ML INJ IVP PRN ×2 (17:01→17:53)
[2017-06-24] MEDS ORDERED: HYDROCODONE/APAP 5/325 TAB PO PRN ×3 (17:01→17:58)
[2017-06-24] MEDS ORDERED: OXYCODONE/APAP 5/325 TAB PO PRN ×2 (17:01→17:53)
[2017-06-24] MEDS ORDERED: NALOXONE HCL 0.4 MG/ML INJ IVP PRN ×2 (17:01→17:53)
[2017-06-24] MEDS ORDERED: HYDROmorphONE/DILAUDID 1 MG/ML SYR IVP PRN (17:01)
[2017-06-24] MEDS ORDERED: HYDROmorphONE/DILAUDID 2 MG/ML INJ ONE (17:49)
[2017-06-24] MEDS ORDERED: LR 500 ML IV PRN (17:53)
[2017-06-24] MEDS ORDERED: ONDANSETRON 4 MG/2 ML VIAL IVP PRN (17:53)
--- NOTE | 2017-06-24 18:00 | POSTOPPROG ---
Post Op Note Date of Operation: 06/24/17 Surgeon: Vesta Rios Basket Assembler: yi Anesthesiologist: dia Anesthesia: GET(General Endotracheal) Pre-op Diagnosis: acute cholecystitis with cholelithiasis Post-op Diagnosis: same Indication: 76 yo with sepsis and pericholecystic fluid Procedure: lap pardeep and lap nicholas Findings: multiple midline adhesions and in RLQ Inf/Abcess present in the surg proc area at time of surgery?: Yes Depth: Organ Space EBL: Minimal Specimen(s): gallbladder
--- NOTE | 2017-06-24 18:13 | HOSPPROG ---
Hospitalist Progress Note Assessment/Plan: * Severe sepsis - possible source - acute cholecystitis vs. UTI -Ceftriaxone/Flagyl to cover GB -IV Vanco to cover enterococcus in urine until sensitivities known -improved with IVF - pressors averted * Acute cholecystitis - d/w Dr. Rios -acute nicholas with adhesions found during surgery * CAD/CABG/stents -no acute ischemia * BPH -continue Flomax * Thyroid mass -outpatient biopsy Subjective: Feels great and wants to go home today. No RUQ pain. Objective: Vital Signs Temp Pulse Resp BP Pulse Ox 36.8 C 61 16 104/63 92 06/24/17 16:25 06/24/17 16:25 06/24/17 16:25 06/24/17 16:25 06/24/17 16:21 Laboratory Results 06/24/17 05:35 06/24/17 05:35 06/23/17 06/24/17 06/25/17 05:59 05:59 05:59 Intake Total 5052 Output Total 350 300 Balance 4702 -300 PT 12.9 SEC (12.0-15.0) 06/23/17 14:15 INR 0.98 (0.83-1.16) 06/23/17 14:15 Abd US - pericholecystic fluid - discussed with dr. Rios to consider nicholas - Physical Exam Constitutional: no apparent distress, appears nourished, not in pain Cardiovascular: regular rate and rhythym, no murmur, rub, or gallop Respiratory: no respiratory distress, no rales or rhonchi, clear to auscultation Gastrointestinal: normoactive bowel sounds, soft, non-tender abdomen, no palpable masses Skin: no rashes or abrasions, no fluctuance, no induration Neurologic: AAOx3, sensation intact bilaterally Psychiatric: interacting appropriately, not anxious, not encephalopathic, thought process linear ICD10 Worksheet Patient Problems: Problems Problem Status Onset Sepsis Acute Urinary tract infection Acute
--- NOTE | 2017-06-24 18:23 | POSTANESTH ---
Post Anesthetic Evaluation Cardiovascular Status: Normal, Stable Respiratory Status: Normal, Stable Level of Consciousness/Mental Status: Can Participate in Eval Pain Control: Adequate, Prn Tx Ordered Nausea/Vomiting Control: Adequate, Prn Tx Ordered Complications Possibly Related to Anesthesia: None Noted
[2017-06-24] MEDS: VANCOMYCIN 1.5 GM in D5W 250 ML IV SCH (20:08)
--- NOTE | 2017-06-24 21:13 | GCON ---
[f rep st] CONSULTATION DATE OF CONSULTATION: 06/24/2017 REQUESTING PHYSICIAN: Doretha Albarado MD CHIEF COMPLAINT: Sepsis HISTORY OF PRESENT ILLNESS: The patient is a 76-year-old man who presented to the hospital with fever, vomiting, and elevated heart rate. He was admitted to the ICU, and a sepsis workup began. He had imaging done in the emergency room including a neck CT (which showed a 6 cm thyroid nodule), a chest x-ray and abdominal ultrasound. The abdominal ultrasound showed cholelithiasis with a small amount of pericholecystic fluid. There was no intrahepatic or extrahepatic dilatation. His. Bilirubin was 1.6 on admission, and the remainder of his LFTs were normal. His white blood cell count was 11,000 on admission. PAST MEDICAL HISTORY: Includes coronary artery disease, urinary tract infection , and benign prostatic hyperplasia. PAST SURGICAL HISTORY: Includes CABG x3, cardiac stents, and appendectomy. FAMILY HISTORY: No family history of coronary artery disease. SOCIAL HISTORY: He lives in [place]. He denies tobacco, alcohol, and illegal drug use. He has a history of former smoking. REVIEW OF SYSTEMS: Specifically negative for right upper quadrant pain and pain after eating. Otherwise, per history of present illness. PHYSICAL EXAMINATION: VITAL SIGNS: I examined him around 1300. Temperature 36.9, 58, 120/64, 23, 97% on room air. GENERAL: Pleasant. Sitting on edge of bed. Well-nourished. His son is at bedside. PSYCH: He is ruminating on the fact that he has been n.p.o. and is somewhat demanding. HEENT: Normocephalic. No gross hearing deficits. Mucous membranes moist. Pupils equal and round. No scleral icterus. NECK: Visible and palpable thyroid mass on the right side of neck. LUNGS: Clear to auscultation bilaterally. No increased work of breathing. CARDIAC: Regular rate. No peripheral edema. ABDOMEN: Bowel sounds present. Soft, nontender, nondistended. MUSCULOSKELETAL: Normal nails. NEURO: Grossly intact. SKIN: Warm and dry. RESULTS: Reviewed per HPI. IMPRESSION: The patient is a 76-year-old man who presented with sepsis. I am not certain that the gallbladder is the etiology of these symptoms. Urinary tract infection is also possible. He did have pericholecystic fluid on his ultrasound. I will take him to the operating room for a laparoscopic cholecystectomy. The risks and benefits, including, but not limited to, infection, bleeding, and leak were discussed. He wanted to dismiss the potential risks of surgery and just proceed. We also briefly discussed not doing surgery and antibiotics, and only if his symptoms would occur again. His son appeared to be much more engaged in learning about the risks and alternatives than the patient. The patient ultimately wanted to schedule surgery, and we will proceed. /[id number]/MODL MTDD
--- NOTE | 2017-06-24 21:33 | GOP ---
[f rep st] OPERATIVE REPORT DATE OF OPERATION: 06/24/2017 SURGEON: Vesta Rios MD MINE PROMOTOR: Jina Oglesby, AL[place]. ANESTHESIA: General. ANESTHESIOLOGIST: Dr. Raúl Maya PREOPERATIVE DIAGNOSIS: Acute calculous cholecystitis. POSTOPERATIVE DIAGNOSIS: Acute calculous cholecystitis with adhesions. PROCEDURE PERFORMED: Laparoscopic lysis of adhesions requiring 30 minutes which is at least 75% longer than I would typically spend, and laparoscopic cholecystectomy. FINDINGS: Adhesions in his right lower quadrant and midline, essentially walling off the right upper quadrant. SPECIMENS: Gallbladder. ESTIMATED BLOOD LOSS: 25 cc. INDICATIONS: The patient is a 76-year-old man with known gallstones, who was admitted for sepsis. He did have some pericholecystic fluid and gallstones, otherwise workup was unremarkable. DESCRIPTION OF PROCEDURE: The patient was brought into the operating room, placed supine on the table, and general anesthesia was administered. His abdomen was prepped and draped in the usual sterile fashion. I infiltrated all sites with 0.5% Marcaine prior to making incisions. I ultimately used 25 cc of 0.5% Marcaine throughout the case. I made an incision at his umbilicus. I elevated it and inserted the Veress needle. It passed the hanging drop test. His abdomen insufflated easily to a pressure of 15 mmHg. I inserted a 5 mm trocar with a camera at this site. I explored his abdomen and there was a lot of omentum adhered to the abdominal wall. I was able to see into his pelvis and partially in the right lower quadrant.. I then inserted a trocar in the right lower quadrant in order to make sure that my initial placement was without injuring any other structures. I placed a 5 mm trocar here and I could then clearly see that the 5 mm trocar was through omentum. This omentum continued to be adhered in veils from below his umbilicus up to the falciform ligament. He also had some bowel adhesed to the abdominal wall near his old appendectomy incision. I could then visualize the left side of the abdomen and I made an incision. I placed another 5 mm trocar. I spent approximately 30 minutes, which is at least 75% longer than I would typically spend doing adhesiolysis in order expose the right upper quadrant. I placed a subxiphoid trocar and two 5 mm trocars along the right costal margin. I then removed walled off omentum from the gallbladder which is typical in a case of acute cholecystitis. I was able to lift the gallbladder cephalad and laterally to expose the triangle of Calot. Using a combination of blunt dissection as well as suction dissection, I isolated the cystic artery and the cystic duct so that they were the only 2 structures directly entering the gallbladder. They were singly clipped toward the gallbladder, doubly clipped distally, and transected with scissors. The gallbladder was removed from the gallbladder fossa with electrocautery. It was densely adhered to the liver. The gallbladder was placed in an EndoCatch bag and removed via the 10 mm trocar. Hemostasis was achieved on the liver bed with electrocautery. I then performed suction irrigation. The clips were in satisfactory position. No injuries were noted. Catalina 3 g was placed on the liver bed. I explored his abdomen once more, and I removed the ports under direct vision. The fascia at the 10 mm trocar site was closed with 0 Vicryl. Skin closed with 4-0 Monocryl. Dermabond applied. He was awakened in the operating room, extubated, transferred to PACU in stable condition. /[id number]/MODL MTDD
[2017-06-24] MEDS: ASPIRIN EC 81 MG TAB PO SCH (22:41)
--- NOTE | 2017-06-24 22:59 | CPEKG ---
Heart Rate: 51 RR Interval: 1176 P-R Interval: 184 QRSD Interval: 98 QT Interval: 460 QTC Interval: 424 P Norwell: 64 QRS Norwell: 13 T Wave Norwell: 25 EKG Severity - ABNORMAL ECG - EKG Impression: SINUS RHYTHM EKG Impression: LEFT VENTRICULAR HYPERTROPHY Electronically Signed By: Tanya Bruce 25-Jun-2017 08:50:01
[2017-06-24] MEDS: TAMSULOSIN HCL 0.4 MG CAP PO SCH (23:54)
[2017-06-25 04:55] LABS: ANION GAP 7 mEq/L (8-16); CALCIUM 8.2 mg/dL (8.5-10.4); CARBON DIOXIDE 19 mEq/l (22-31); CHLORIDE 109 mEq/L (97-110); CREATININE 0.7 mg/dL (0.7-1.3); GLOMERULAR FILTRATION RATE > 60; GLUCOSE 131 mg/dL (70-100); POTASSIUM 3.8 mEq/L (3.5-5.2); SODIUM 135 mEq/L (134-144)
[2017-06-25 06:01] LABS: % IMMATURE GRANULYOCYTES 0.6 % (0.0-1.1); ABSOLUTE IMMATURE GRANULOCYTES 0.07 10^3/uL (0.00-0.10); ADD DIFF? NO; ADD MORPH? NO; ADD SCAN? NO; ATYPICAL LYMPHOCYTE FLAG 0 (0-99); FRAGMENT RBC FLAG 10 (0-99); HEMATOCRIT 38.8 % (40.0-51.0); HEMOGLOBIN 13.1 g/dL (13.7-17.5); LEFT SHIFT FLG 10 (0-99); LIPEMIA HEMOLYSIS FLAG 90 (0-99); MEAN CELL HEMOGLOBIN 31.6 pg (27.9-34.1); MEAN CELL HEMOGLOBIN CONCENTR. 33.8 g/dL (32.4-36.7); MEAN CELL VOLUME 93.5 fL (81.5-99.8); MEAN PLATELET VOLUME 10.6 fL (8.7-11.7); PLATELET CLUMPS FLAG 10 (0-99); PLATELET COUNT 187 10^3/uL (150-400); RED BLOOD CELL COUNT 4.15 10^6/uL (4.40-6.38); RED CELL DISTRIBUTION WIDTH 13.2 % (11.5-15.2)
[2017-06-25 06:05] LABS: ALANINE AMINOTRANSFERASE 74 IU/L (21-72); ALBUMIN 2.6 g/dL (3.5-5.0); ALKALINE PHOSPHATASE 59 IU/L (38-126); ASPARTATE AMINOTRANSFERASE 70 IU/L (17-59); BILIRUBIN,TOTAL 0.8 mg/dL (0.1-1.4); BILIRUBIN-CONJUGATED 0.4 mg/dL (0.0-0.5); BILIRUBIN-UNCONJUGATED 0.4 mg/dL (0.0-1.1)
[2017-06-25] MEDS: cefTRIAXone 2 GM in D5W 50 ML IV SCH (08:22)
[2017-06-25] MEDS: ENOXAPARIN 40 MG/0.4 ML SYR SC SCH (08:25)
--- NOTE | 2017-06-25 11:31 | SOAPPROG ---
SOAP Progress Note Assessment/Plan: Assessment: 76 yo male POD #1 s/p lap adhesiolysis and cholecystectomy, bacteremia, UTI Plan: Neuro: Pain well controlled Wounds: No dressings. Can shower without covering incisions. No hot tubs, tub baths or swimming pools x 2 weeks Cardio: Stable Lungs: Stable, cough deep breath FEN: IV fluids managed by Foreclosure Field Inspector. Electrolytes stable. Regular diet. Heme/ID: Bacteremia. Abx 2 gm IV ceftriaxone and flagyl per hospitalists. GI: Awaiting bowel function to return. : Normal urine output From surgical perspective, can discharge when medically stable. S: Pt is feeling much better since the surgery. He reports only mild soreness in the abdomen without n/v. Pt is ambulating well and has no complaints. He is urinating normally and has not passed gas or had a BM yet. O: Gen: WDWN elderly male in no acute distress Skin: Warm, dry HEENT: NCAT, PER, hearing grossly intact Lungs: CTA bilaterally, no increased WOB HEART: RR, no peripheral edema GI: Abdomen is soft, nontender/nondistended, BSx4 and normal. Incisions are clean, dry, without erythema or edema and well approximated. Neuro: Grossly intact Psych: Normal mood and affect 06/25/17 11:26 06/25/17 11:31 06/25/17 11:34 06/25/17 11:42 Objective: Vital Signs Temp Pulse Resp BP Pulse Ox 36.4 C 64 20 133/75 H 84 L 06/25/17 08:15 06/25/17 08:15 06/25/17 08:15 06/25/17 08:15 06/25/17 08:33 Laboratory Results 06/25/17 04:24 06/25/17 04:24 06/24/17 06/25/17 06/26/17 05:59 05:59 05:59 Intake Total 5052 2394 Output Total 350 525 Balance 4702 1869 PT 12.9 SEC (12.0-15.0) 06/23/17 14:15 INR 0.98 (0.83-1.16) 06/23/17 14:15 ICD10 Worksheet Patient Problems: Problems Problem Status Onset Sepsis Acute Urinary tract infection Acute
[2017-06-25] MEDS: ATORVASTATIN CALCIUM 20 MG TAB PO SCH (13:24)
[2017-06-25] MEDS: CO Q10 PO SCH (13:49)
--- NOTE | 2017-06-25 15:53 | HOSPPROG ---
Hospitalist Progress Note Assessment/Plan: 76 yo M w/pmh of CAD, BPH presenting with severe sepsis and acute cholecystitis # acute cholecystitis: presenting with sepsis and US findings of cholelithiasis and pericholecystic fluid c/w acute vs acute on chronic cholecystitis, started on ctx/flagyl pre operatively and now s/p lap cholecystectomy today # severe sepsis: initially treated in ICU but now improved, has not required pressors. Source felt to be either above or related to UTI as next. Has been on ctx/flagyl and vanco since arrival in ER with only significant culture data to date from urine as next. Will ask ID to consult to help tailor abx in preparation for dc # UTI: has >100k of 2 different organisms: enterococcus and aerococcus, no real urinary complaints. Has been on vanco to cover enterococcus as above with sensitivities still pending. Asking for ID to consult. # CAD: hx of cabg and stents, no e/o acute decompensation # thyroid mass: on personal review of neck CT has complex cystic and solid thyroid mass measuring 6.1cm, TSH wnl, will recommend patient f/u with endo as an OP for further evaluation # IP status, will likely be ready for dc in coming 1-2 days Patiente new to my care. Old records reviewed and summarized as above. Subjective: no significant overnight events, patient currently feeling better, notes abd pain is mild Objective: Vital Signs Temp Pulse Resp BP Pulse Ox 36.4 C 64 20 133/75 H 84 L 06/25/17 08:15 06/25/17 08:15 06/25/17 08:15 06/25/17 08:15 06/25/17 08:33 Laboratory Results 06/25/17 04:24 06/25/17 04:24 06/24/17 06/25/17 06/26/17 05:59 05:59 05:59 Intake Total 5052 2394 Output Total 350 525 420 Balance 4702 1869 -420 PT 12.9 SEC (12.0-15.0) 06/23/17 14:15 INR 0.98 (0.83-1.16) 06/23/17 14:15 awake alert nad anicteric op clear rrr no mrg cta b soft dec bs no cce warm dry well perfused oriented appropriate ICD10 Worksheet Patient Problems: Problems Problem Status Onset Sepsis Acute Urinary tract infection Acute
[2017-06-25] MEDS: VANCOMYCIN 1.5 GM in D5W 250 ML IV SCH (18:10)
[2017-06-25] MEDS: ASPIRIN EC 81 MG TAB PO SCH (20:01)
[2017-06-25] MEDS: TAMSULOSIN HCL 0.4 MG CAP PO SCH (21:40)
[2017-06-26] MEDS: cefTRIAXone 2 GM in D5W 50 ML IV SCH (09:32)
[2017-06-26] MEDS: ENOXAPARIN 40 MG/0.4 ML SYR SC SCH (09:32)
--- NOTE | 2017-06-26 10:24 | SOAPPROG ---
SOAP Progress Note Assessment/Plan: Assessment: 76 yo male POD #2 s/p lap adhesiolysis and cholecystectomy, bacteremia, UTI Plan: Neuro: Pain well controlled Wounds: No dressings. Can shower without covering incisions. No hot tubs, tub baths or swimming pools x 2 weeks Cardio: Stable Lungs: Stable, cough deep breath FEN: PO fluids managed by Program Officer. Electrolytes stable. Regular diet. Heme/ID: Bacteremia. Abx 2 gm IV ceftriaxone and flagyl per hospitalists. GI: Passing gas : Normal urine output From surgical perspective, can discharge when medically stable. F/U Dr. Rios in 2 weeks Surgery will sign off and will be available for any questions or concerns. S: Pt is feeling much better since the surgery. He reports only mild soreness in the abdomen without n/v. Pt is ambulating well and has no complaints. He is urinating normally and has passed gas, but no BM yet. He has questions about his UTI O: Gen: WDWN elderly male in no acute distress Skin: Warm, dry HEENT: NCAT, PER, hearing grossly intact Lungs: CTA bilaterally, no increased WOB HEART: RR, no peripheral edema GI: Abdomen is soft, nontender/nondistended, BSx4 and normal. Incisions are clean, dry, without erythema or edema and well approximated. Neuro: Grossly intact Psych: Normal mood and affect 06/25/17 11:26 06/25/17 11:31 06/25/17 11:34 06/25/17 11:42 06/26/17 10:21 06/26/17 10:25 06/26/17 10:49 Objective: Vital Signs Temp Pulse Resp BP Pulse Ox 36.7 C 78 18 109/69 94 06/26/17 09:27 06/26/17 09:27 06/26/17 09:27 06/26/17 09:27 06/26/17 09:27 Laboratory Results 06/25/17 04:24 06/25/17 04:24 06/25/17 06/26/17 06/27/17 05:59 05:59 05:59 Intake Total 2394 1000 Output Total 525 1070 Balance 1869 -70 PT 12.9 SEC (12.0-15.0) 06/23/17 14:15 INR 0.98 (0.83-1.16) 06/23/17 14:15 ICD10 Worksheet Patient Problems: Problems Problem Status Onset Sepsis Acute Urinary tract infection Acute
[2017-06-26] MEDS ORDERED: ALTEPLASE 2 MG VIAL IVP PRN (11:12)
--- NOTE | 2017-06-26 11:17 | PDIAF ---
- Diagnosis Diagnosis: aerococcus bacteremia, urinary source Code Status: Full Code - Medication Management Discharge Medications: Medications to Continue on Transfer Aspirin EC [Aspirin EC 81 mg (*)] 81 mg PO HS 06/23/17 [Last Taken 06/22/17] Atorvastatin Calcium [Lipitor 20 mg (*)] 20 mg PO DAILY@1300 06/23/17 [Last Taken 06/23/17] Finasteride [Proscar 5 MG (*)] 5 mg PO DAILY 06/23/17 [Last Taken 06/23/17] Herbals/Supplements -Info Only 1 ea PO DAILY 06/23/17 [Last Taken Unknown] Tamsulosin HCl [Flomax 0.4 MG (*)] 0.4 mg PO HS 06/23/17 [Last Taken 06/22/17] Enterprise Resource Analyst Antibiotics: penicillin 24MU IV continuous infusion Shelter Antibiotic Stop Date: 07/03/17 Discharge Medications: Refer to the Discharge Home Medication list for PRN reason. PICC Care - Routine: Yes - Orders Services needed: Home Care, Registered Nurse Home Care Face to Face: I certify that this patient was under my care and that I had the required [id number] encounter meeting the encounter requirements on the discharge day. My findings support the fact that the patient is homebound as defined in CMS Chapter 7 Medicare Benefits Manual 30.1.1, The condition of the patient is such that there exists a normal inability to leave home and consequently, leaving home would require a considerable and taxing effort. - Labs/Radiology CBC Date: 06/30/17 (once) CMP Date: 06/30/17 (once) Call or Fax Lab and Imaging Results to: Susie Rivera MD [facility] at fax [phone] - Follow Up Care Current Providers and Referrals: Vesta Rios MD [Medical Doctor] - follow up in 2 weeks Patient,NotPresent [Unknown] - As per Instructions Susie Rivera MD [Medical Doctor] - 07/03/17 2:30 pm
[2017-06-26] MEDS: PENICILLIN G POTASSIUM 4,000,000 UNIT in D5W 100 ML IV SCH ×4 (12:09→21:42)
[2017-06-26] MEDS: CO Q10 PO SCH (14:22)
--- NOTE | 2017-06-26 14:24 | GCON ---
[f rep st] CONSULTATION INFECTIOUS DISEASE CONSULTATION DATE OF CONSULTATION: 06/26/2017 REFERRING PHYSICIAN: Baltazar Multani MD REASON FOR CONSULTATION: Aerococcus bacteremia. HISTORY OF PRESENT ILLNESS: A 76-year-old male, originally from [place], with a past medical history of coronary artery disease and BPH with recurrent UTIs, who presents to the emergency room via EMS wi th rigors, temperature to nearly 41 degrees Celsius, and tachycardia to 130. The patient, on present ation to the emergency room, was found to have a positive urinalysis, positive lactate initially, whi ch improved with IV fluids. The patient was started on IV ceftriaxone, and eventually IV vancomycin and metronidazole were started on the same day. Imaging was performed and showed cholelithiasis with small amount of pericholecystic fluid, a normal common bile duct, and no Thomas sign. Patient had m ildly elevated bilirubin on admission, but otherwise LFTs were within normal limits. A left subclavi an was placed on 06/23 for IV access. The patient had urine and blood cultures that were obtained, a nd subsequently urine culture grew enterococcus and aerococcus, and blood cultures 1 out of 2 grew ae rococcus. Later that day, blood cultures were repeated and remained negative to date. The patient s ubsequently underwent a cholecystectomy on 06/24/2017 without obvious complication. ID is asked to latesha carnes today for further antibiotic recommendation. PAST MEDICAL AND SURGICAL HISTORY: Coronary artery disease, status post CABG; known cholelithiasis; BPH with multiple UTIs; prior self in-and-out catheterization, stopped about 1 month ago; and appende ctomy. FAMILY HISTORY: Reviewed and noncontributory, but is negative for coronary artery disease and stroke . 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 He is for over 50 years. His has a PhD in computer science. They have 2 adult latesha patel. The patient, however, is originally from [place], moved to [place], lived there for 10 years, and immigrated to the [place] in [place]. The patient moved to the [place] area as his was completin g her PhD at [employer]. No tobacco, alcohol or illicits. No recent international travel. MEDICATIONS: Vancomycin 1.5 g IV q.24, started 06/24/2017. Metronidazole 500 mg IV q.8, started 02/2017. Ceftriaxone 2 g IV daily started on 06/23/2017. Additional medications include Tylenol, No rco, Lipitor, Lovenox, Zofran, and Flomax as an outpatient. He is also on finasteride. REVIEW OF SYSTEMS: A complete 10-point review of systems was performed and is negative, except as me ntioned in the HPI. Specifically, patient denied abdominal pain. He did have several episodes of vo miting before admission. He has urinary frequency that is longstanding. He denied any changes in hi s urinary habits prior to admission. PHYSICAL EXAM: VITAL SIGNS: T-max while admitted 37.4, T-current 36.7, BP 109/69, HR 74, respirator y rate 18, saturation 94% on room air. GENERAL: This is a pleasant male, sitting up in bed in no ac adeline distress. HEENT: Fair dentition. Moist mucous membranes. NECK: Supple. No lymphadenopathy. CARDIOVASCULAR: Regular rate. No murmurs were noted. CHEST: Clear to auscultation bilaterally. ABDOMEN: Soft, nontender. He had multiple small surgical incision sites from a recent laparoscopic cholecystectomy that were healing well without erythema. : Patient has uncircumcised phallus. No penile discharge. Bilateral descended testicles that are nontender. No inguinal lymphadenopathy was noted. NEUROLOGIC: He is alert and oriented x4, moving all 4 extremities equally. SKIN: No rashe s. LINES: He had a left subclavian triple-lumen catheter that was clean, dry, and intact. LABORATORY: White count 12.3, hematocrit 38, platelets of 187, 88% neutrophils. Creatinine is 0.4, AST 70, ALT 74, total bilirubin on admission was 1.6 and now is 0.8. Urinalysis showed 2+ leukocyte esterase and 25 to 50 WBCs. Initial blood cultures, on 06/23/2017 at 1400, grew 1 out of 2 aerococcu s, and urine cultures grew 100,000 each of enterococcus and aerococcus. No past urine cultures are a vailable in our system. ASSESSMENT AND PLAN: This is a 76-year-old male who presented to the emergency room with sepsis and subsequently found to have bacteremia with aerococcus, urinary source. In addition, patient was foun d to have possible calculous cholecystitis and underwent laparoscopic cholecystectomy. 1. Bacteremia with aerococcus, secondary to urinary tract infection: Would recommend intravenous pe nicillin to complete a 10 day course, as would be recommended with any form of streptococcus. Blood cultures later on 06/23/2017 already demonstrate clearance and suggesting transient bacteremia, makin g endocarditis highly unlikely. Will obtain a postvoid residual to assess if the patient has chronic urinary retention which contributed to bacteremia. 2. 3. Acalculous cholecystitis: 48 hours of antibiotics postoperatively is plenty for treatment for po ssible cholecystitis postoperatively. Time 75 minutes, greater than 50% time spent with education and counseling regarding PICC line placem ent, care of PICC line, IV antibiotics, use of IV penicillin, risks and benefits, specific pathophysi ology regarding bacteremia with underlying concern for chronic difficulties with bladder emptying. Thank you for this consultation. We will continue to follow on a daily basis. Tentatively planned d ischarge later today or early tomorrow. /[id number]/MODL
--- NOTE | 2017-06-26 14:38 | HOSPPROG ---
Hospitalist Progress Note Assessment/Plan: 76 yo M w/pmh of CAD, BPH presenting with severe sepsis and acute cholecystitis # acute cholecystitis: presenting with sepsis and US findings of cholelithiasis and pericholecystic fluid c/w acute vs acute on chronic cholecystitis, started on ctx/flagyl pre operatively and now s/p lap cholecystectomy and off of abx for this. # severe sepsis (without septic shock): initially treated in ICU but now improved, has not required pressors. Presumed source is urinary with both e/o urinary infection and bacteremia. Had concurrent cholecystitis, though by imaging that appeared to be possibly chronic # UTI: has >100k of 2 different organisms: enterococcus and aerococcus, no real urinary complaints. Has been on vanco but transitioning to pcn today # aerococcus bacteremia: cleared very quickly, surveillance cxs negative, as above, continue pcn with a plan to continue for a total of 10 days. PICC placed. # CAD: hx of cabg and stents, no e/o acute decompensation # thyroid mass: on personal review of neck CT has complex cystic and solid thyroid mass measuring 6.1cm, TSH wnl, will recommend patient f/u with endo as an OP for further evaluation # IP status, will likely be ready for dc in am Care plan reviewed with ID Subjective: no significant overnight events, patient is eager to dc home, eating without issues Objective: Vital Signs Temp Pulse Resp BP Pulse Ox 36.7 C 78 18 109/69 94 06/26/17 09:27 06/26/17 09:27 06/26/17 09:27 06/26/17 09:27 06/26/17 09:27 Laboratory Results 06/25/17 04:24 06/25/17 04:24 06/25/17 06/26/17 06/27/17 05:59 05:59 05:59 Intake Total 2394 1000 Output Total 525 1070 300 Balance 1869 -70 -300 PT 12.9 SEC (12.0-15.0) 06/23/17 14:15 INR 0.98 (0.83-1.16) 06/23/17 14:15 awake alert nad anicteric op clear rrr no mrg cta b soft dec bs no cce warm dry well perfused oriented appropriate ICD10 Worksheet Patient Problems: Problems Problem Status Onset Sepsis Acute Urinary tract infection Acute
[2017-06-26] MEDS: ATORVASTATIN CALCIUM 20 MG TAB PO SCH (14:56)
[2017-06-26] MEDS ORDERED: CALCIUM CARBONATE 500 MG CHEWABLE TAB PO PRN (18:24)
[2017-06-26] MEDS: TAMSULOSIN HCL 0.4 MG CAP PO SCH (20:50)
[2017-06-26] MEDS: ASPIRIN EC 81 MG TAB PO SCH (21:11)
[2017-06-27] MEDS: PENICILLIN G POTASSIUM 4,000,000 UNIT in D5W 100 ML IV SCH ×3 (01:35→10:04)
[2017-06-27 06:11] LABS: % IMMATURE GRANULYOCYTES 0.6 % (0.0-1.1); ABSOLUTE IMMATURE GRANULOCYTES 0.06 10^3/uL (0.00-0.10); ADD DIFF? NO; ADD MORPH? NO; ADD SCAN? NO; ATYPICAL LYMPHOCYTE FLAG 30 (0-99); FRAGMENT RBC FLAG 0 (0-99); HEMATOCRIT 37.8 % (40.0-51.0); HEMOGLOBIN 13.4 g/dL (13.7-17.5); LEFT SHIFT FLG 10 (0-99); LIPEMIA HEMOLYSIS FLAG 90 (0-99); MEAN CELL HEMOGLOBIN 32.1 pg (27.9-34.1); MEAN CELL HEMOGLOBIN CONCENTR. 35.4 g/dL (32.4-36.7); MEAN CELL VOLUME 90.4 fL (81.5-99.8); MEAN PLATELET VOLUME 10.2 fL (8.7-11.7); PLATELET CLUMPS FLAG 0 (0-99); PLATELET COUNT 198 10^3/uL (150-400); RED BLOOD CELL COUNT 4.18 10^6/uL (4.40-6.38)
[2017-06-27 06:45] LABS: ALANINE AMINOTRANSFERASE 65 IU/L (21-72); ALKALINE PHOSPHATASE 82 IU/L (38-126); ANION GAP 9 mEq/L (8-16); ASPARTATE AMINOTRANSFERASE 40 IU/L (17-59); BILIRUBIN,TOTAL 1.4 mg/dL (0.1-1.4); CALCIUM 8.5 mg/dL (8.5-10.4); CARBON DIOXIDE 23 mEq/l (22-31); CHLORIDE 107 mEq/L (97-110); CREATININE 0.7 mg/dL (0.7-1.3); GLOMERULAR FILTRATION RATE > 60; GLUCOSE 85 mg/dL (70-100); POTASSIUM 3.3 mEq/L (3.5-5.2); SODIUM 139 mEq/L (134-144); TOTAL PROTEIN 5.6 g/dL (6.3-8.2)
[2017-06-27 09:56] VITALS: RESP 18
[2017-06-27] MEDS: ENOXAPARIN 40 MG/0.4 ML SYR SC SCH (10:04)
--- NOTE | 2017-06-27 11:15 | PDIAF ---
- Diagnosis Diagnosis: aerococcus bacteremia, urinary source Code Status: Full Code - Medication Management Discharge Medications: Medications to Continue on Transfer Aspirin EC [Aspirin EC 81 mg (*)] 81 mg PO HS 06/23/17 [Last Taken 06/22/17] Atorvastatin Calcium [Lipitor 20 mg (*)] 20 mg PO DAILY@1300 06/23/17 [Last Taken 06/23/17] Finasteride [Proscar 5 MG (*)] 5 mg PO DAILY 06/23/17 [Last Taken 06/23/17] Herbals/Supplements -Info Only 1 ea PO DAILY 06/23/17 [Last Taken Unknown] Tamsulosin HCl [Flomax 0.4 MG (*)] 0.4 mg PO HS 06/23/17 [Last Taken 06/22/17] Damascener Antibiotics: vancomycin 1.5gm IV daily Usp Antibiotic Stop Date: 07/03/17 Discharge Medications: Refer to the Discharge Home Medication list for PRN reason. PICC Care - Routine: Yes - Orders Services needed: Home Care, Registered Nurse Home Care Face to Face: I certify that this patient was under my care and that I had the required [id number] encounter meeting the encounter requirements on the discharge day. My findings support the fact that the patient is homebound as defined in CMS Chapter 7 Medicare Benefits Manual 30.1.1, The condition of the patient is such that there exists a normal inability to leave home and consequently, leaving home would require a considerable and taxing effort. - Labs/Radiology BMP Date: 07/03/17 (once) CBC Date: 06/30/17 (once) CMP Date: 06/30/17 (once) Vanco Trough Date and Time: 06/30/17 and 07/03/17 Call or Fax Lab and Imaging Results to: Susie Rivera MD [facility] at fax [phone] - Follow Up Care Current Providers and Referrals: Vesta Rios MD [Medical Doctor] - follow up in 2 weeks Susie Rivera MD [Medical Doctor] - 07/03/17 2:30 pm Patient,NotPresent [Unknown] - As per Instructions
[2017-06-27] MEDS ORDERED: VANCOMYCIN 1.5 GM in D5W 250 ML IV SCH (11:30)
--- NOTE | 2017-06-27 11:33 | PCMIDPN ---
Assessment/Plan: #Aerococcus bacteremia secondary to urinary source: rapid clearance of blood cx. ~110cc post void residual. WBC slowly normalizing, now 10 --family prefers Rx with vancomycin, interagency changed. Patient to receive dose here --DC okay from ID standpoint, f/u appt with me is in discharge summary --risk of C diff discussed as well as other side effects to antibiotics, fever rash --follow up with urology to eval slightly elevated Post void residual #Chronic Cholecystitis s/p cholecystectomy: patient rec'd ~72 hours broad spec antibiotic, which would be appropriate Time 30 min >50% time spent with education and counseling, patient, and son present as with as RNSharon. Long review of pathogenesis of bacteremia/UTI/ recommended treatment/measures of improvement/expected course. R Subjective: patient is without c/o Objective: Vital Signs Temp Pulse Resp BP Pulse Ox 37.2 C 67 18 150/89 H 92 06/27/17 09:40 06/27/17 09:40 06/27/17 09:40 06/27/17 09:40 06/27/17 09:40 Laboratory Results 06/27/17 06:05 06/27/17 06:05 06/26/17 06/27/17 06/28/17 05:59 05:59 05:59 Intake Total 1000 1800 Output Total 1070 580 Balance -70 1220 - Physical Exam General Appearance: alert, no apparent distress Respiratory: No respiratory distress, No accessory muscle use Cardiac/Chest: regular rate, rhythm, No systolic murmur Extremities: pedal edema Abdomen: non-tender, soft Male Genitalia: No ac ICD10 Worksheet Patient Problems: Problems Problem Status Onset Sepsis Acute Urinary tract infection Acute
[2017-06-27 11:37] VITALS: BP 136/79; PULSE 56; TEMP 98.2; O2SAT 94
[2017-06-27] MEDS: ATORVASTATIN CALCIUM 20 MG TAB PO SCH (12:22)
[2017-06-27] MEDS: CO Q10 PO SCH (12:23)
--- NOTE | 2017-06-27 12:32 | PDDCSUM ---
Discharge Summary Discharge Summary: Dates of service 06/23-06/27/17 Discharge dx: # Aerococcus UTI/bacteremia # acute cholecystits # severe sepsis # CAD # thyroid mass Consultations: ID, general surgery Procedures performed: lap cholecystectomy, PICC placement Hospital course by problem: 76 yo M w/pmh of CAD, BPH presenting with severe sepsis and acute cholecystitis # acute cholecystitis: presenting with sepsis and US findings of cholelithiasis and pericholecystic fluid c/w acute vs acute on chronic cholecystitis, started on ctx/flagyl pre operatively and now s/p lap cholecystectomy and off of abx for this as completed 72 hours of abx # severe sepsis (without septic shock): initially treated in ICU but now improved, has not required pressors. Presumed source is urinary with both e/o urinary infection and bacteremia. Had concurrent cholecystitis, though by imaging that appeared to be possibly chronic # UTI: has >100k of 2 different organisms: enterococcus and aerococcus, no real urinary complaints. Will dc with a full course of vanco as next # aerococcus bacteremia: cleared very quickly, surveillance cxs negative, as above, plan to continue vancomycin for a total of 10 days. PICC placed. # CAD: hx of cabg and stents, no e/o acute decompensation # thyroid mass: on personal review of neck CT has complex cystic and solid thyroid mass measuring 6.1cm, TSH wnl, will recommend patient f/u with endo as an OP for further evaluation # dc home with home health > 35 minutes spent in dc, more than half in coordination of care
--- NOTE | 2017-06-29 17:05 | ASMTCMCOM ---
CM Note CM Note Notes: Pt has bacteremia and ID would like pt to have 7 days of continuous IV infusion with 24 MU penicillin. Faxed referral to [facility]. Pt has no secondary insurance and does not have Medicare Part D. The cost to the pt for 6 days of IV ABX will be $685. Discussed option of paying [id number] vs SNF with pt. He is choosing home IV ABX. [facility] will meet with pt and tomorrow to install pt's cont. infusion equipment and do teaching. [facility] will have someone out on Friday unless pt needs someone tomorrow night. C/M to follow. Date Signed: 06/26/2017 04:20 PM Electronically Signed By:Marla Phan
== END 2017-06-27 14:43 | disposition home health service (06) | DRG 854 ==
LOC: EDUNIT# → F2N 19:31 → F1N 06-24 15:35
PROVIDERS: ADMIT Internal Medicine; ATTEND Internal Medicine
PROC: 02HV33Z Insertion of Infusion Device into Superior Vena Cava, Percutaneous Approach (ICD-10-PCS; 2017-06-23)
PROC: 0FT44ZZ Resection of Gallbladder, Percutaneous Endoscopic Approach (ICD-10-PCS; principal; 2017-06-24 15:15)
PROC: 0DN84ZZ Release Small Intestine, Percutaneous Endoscopic Approach (ICD-10-PCS; principal; 2017-06-24 15:15)
PROC: 0DNT4ZZ (ICD-10-PCS; principal; 2017-06-24 15:15)
PROC: 02HV33Z Insertion of Infusion Device into Superior Vena Cava, Percutaneous Approach (ICD-10-PCS; 2017-06-26)
DX: A41.9 Sepsis, unspecified organism (principal); R65.20 Severe sepsis without septic shock; N39.0 Urinary tract infection, site not specified; B96.89 Other specified bacterial agents as the cause of diseases classified elsewhere; B95.2 Enterococcus as the cause of diseases classified elsewhere; K80.00 Calculus of gallbladder with acute cholecystitis without obstruction; E87.2 Acidosis; K66.0 Peritoneal adhesions (postprocedural) (postinfection); I25.10 Atherosclerotic heart disease of native coronary artery without angina pectoris; I10 Essential (primary) hypertension; E07.9 Disorder of thyroid, unspecified; E04.1 Nontoxic single thyroid nodule; Z95.5 Presence of coronary angioplasty implant and graft; Z95.1 Presence of aortocoronary bypass graft
CPT/HCPCS: 96365; C1751; J0696; J1100; J1170; J1650; J2405; J2540; J2704; J3010; J3370; Q9967

== ENCOUNTER → 2018-12-18 | Outpatient (CLI) | payer OTHER | LOC: FIMAGING 09:56 | PROVIDERS: ATTEND Family Medicine | DX: E04.1 Nontoxic single thyroid nodule (principal) ==